=== PATIENT | male | born 1990 | race Caucasian/White ===

== ENCOUNTER → 2024-01-23 12:39 | Outpatient (REF) | payer BC, SELFPAY ==
[2024-01-23 13:00] VITALS: BP 120/79; BP_SYST 82
== END ==
LOC: RADI 12:39
PROVIDERS: ATTENDING PHYSICIAN Student in an Organized Health Care Education/Training Program
DX: M79.671 Pain in right foot (principal)
CPT/HCPCS: 20604; 76882